=== PATIENT | male | born 1955 ===

== ENCOUNTER 2017-05-17 10:34 | Observation (INO) | payer OTHER ==
--- NOTE | 2017-05-17 11:17 | ED PDOC ---
HPI: Psych/Substance Abuse Time Seen by Provider: 05/17/17 10:37 Chief Complaint (Nursing): Psychiatric Evaluation History Per: Patient, EMS Additional Complaint(s): Pt. brought in by EMS as he is c/o feeling depressed x 2 months. States he does usually drink but has been drinking more heavily over the past 2 months. Pt. states that he feels depressed because he from his 2 months ago and has also become homeless. Offers no physical complaints. Denies SI/HI, hallucinations. As per EMS pt. was found to have 1 empty bottle of vodka and did admit to drinking the bottle today. Past Medical History Reviewed: Historical Data, Nursing Documentation, Vital Signs Vital Signs: Last Vital Signs Temp 97 F L 05/17/17 10:50 Pulse 89 05/17/17 10:50 Resp 17 05/17/17 10:50 BP Pulse Ox 98 05/17/17 10:50 - Medical History PMH: HTN (not currenlty on any medications ) Denies: Diabetes - Surgical History Surgical History: No Surg Hx - Family History Family History: States: No Known Family Hx - Allergies Allergies/Adverse Reactions: Allergies Allergy/AdvReac Type Severity Reaction Status Date / Time No Known Allergies Allergy Verified 05/17/17 10:49 Review of Systems ROS Statement: Except As Marked, All Systems Reviewed And Found Negative Psych: Positive for: Depression Physical Exam - Reviewed Nursing Documentation Reviewed: Yes Vital Signs Reviewed: Yes - Physical Exam Appears: Positive for: Well, Non-toxic, No Acute Distress Head Exam: Positive for: ATRAUMATIC, NORMAL INSPECTION, NORMOCEPHALIC Skin: Positive for: Normal Color, Warm. Negative for: Rash Eye Exam: Positive for: EOMI, Normal appearance, PERRL ENT: Positive for: Normal ENT Inspection Neck: Positive for: Normal, Painless ROM Cardiovascular/Chest: Positive for: Regular Rate, Rhythm Respiratory: Positive for: CNT, Normal Breath Sounds Gastrointestinal/Abdominal: Positive for: Normal Exam, Bowel Sounds, Soft. Negative for: Tenderness Back: Positive for: Normal Inspection Extremity: Positive for: Normal ROM Neurologic/Psych: Positive for: Alert, Oriented, Gait (steady unassisted). Negative for: Aphasia, Facial Droop - Laboratory Results Result Diagrams: 05/17/17 11:23 05/17/17 11:23 - ECG ECG: Positive for: Interpreted By Me ECG Rhythm: Positive for: Sinus Rhythm. Negative for: ST/T Changes Rate: 80 O2 Sat by Pulse Oximetry: 98 - Radiology X-Ray: Interpreted by Me (CXR) - Progress ED Course And Treament: FSBS: 193 Labs ordered. Crisis evaluation ordered. 1220 Sleeping comfortably 1405 No distress. Easily arousable. 1600 Sleeping and in no distress. Easily arousable. 1940 Pt. evaluated by crisis and arrangements made for admission at the request of Dr. Min Disposition - Clinical Impression Clinical Impression: Depression - Patient ED Disposition Is Patient to be Admitted: Yes - Disposition Disposition Time: 20:00 Condition: STABLE Forms: [employer] (Icelandic)
[2017-05-17 11:38] LABS: BASO % 0.7 % (0.0-2.0); EOS # 0.1 K/uL (0.0-0.7); EOS % 2.3 % (0.0-4.0); HEMATOCRIT 40.9 % (35.0-51.0); LYMPH # 1.1 K/uL (1.0-4.3); LYMPH % 17.3 % (20.0-40.0); MEAN CELL VOLUME 95.2 fl (80.0-94.0); MEAN CORPUSCULAR HEMOGLOBIN 32.3 pg (27.0-31.0); MEAN PLATELET VOLUME 8.4 fl (7.2-11.7); MONO # 0.4 K/uL (0.0-0.8); MONO % 6.4 % (0.0-10.0); NEUT # 4.6 K/uL (1.8-7.0); NEUT % 73.3 % (50.0-75.0); RED CELL DISTRIBUTION WIDTH 15.4 % (11.5-14.5); WHITE BLOOD COUNT 6.2 K/uL (4.8-10.8)
[2017-05-17 11:49] LABS: ALB/GLOB RATIO 1.3 (1.0-2.1); ALKALINE PHOSPHATASE 68 U/L (38-126); ALT/SGPT 147 U/L (21-72); AST/SGOT 182 U/L (17-59); BILIRUBIN,TOTAL 0.7 mg/dl (0.2-1.3); BLOOD UREA NITROGEN 12 mg/dl (9-20); CALCIUM 9.2 mg/dL (8.4-10.2); CARBON DIOXIDE 25 mmol/L (22-30); CHLORIDE 104 mmol/L (98-107); GFR AFRICAN-AMERICAN > 60; GLUCOSE,RANDOM 129 mg/dL (75-110); POTASSIUM 3.9 MMOL/L (3.6-5.0); SODIUM 144 mmol/l (132-148); TOTAL PROTEIN 8.2 G/DL (6.3-8.2)
[2017-05-17 12:04] LABS: ALCOHOL SERUM 334 mg/dl (0-10)
[2017-05-17 12:07] LABS: RBC URINE 4 /hpf (0-3); URINE BACTERIA RARE (<OCC); URINE BILIRUBIN NEGATIVE (NEGATIVE); URINE BLOOD SMALL (NEGATIVE); URINE COLOR YELLOW (YELLOW); URINE GLUCOSE (UA) NEG (Normal); URINE KETONE TRACE mg/dL (NEGATIVE); URINE LEUKOCYTE ESTERASE NEG Leu/uL (Negative); URINE PROTEIN 30 mg/dL (NEGATIVE); WBC URINE 1 /hpf (0-5)
[2017-05-18] MEDS ORDERED: Sodium Chloride 0.9% 1,000 ML IV STA (00:40)
[2017-05-18] MEDS ORDERED: Sodium Chloride 0.9% 250 ML IV STA (00:40)
[2017-05-18] MEDS ORDERED: Metoprolol 1 mg/ml Inj IVP STA (00:52)
[2017-05-18] MEDS ORDERED: Metoprolol 1 mg/ml Inj IVP ONE (01:05)
--- NOTE | 2017-05-18 07:52 | CP.PCM.HP ---
History of Present Illness - History of Present Illness History of Present Illness: PCP: None Chief Complaint: Depressed The patient was seen and examined in the ICU, no family present HPI: This is a 61 years old male who has hx of HTN, non compliant with medication. He has been from his for 2 months and has been homeless and drinking alcohol daily since. He was picked up on the street by the ambulance and bought to the ED where he admitted to being depressed. No Thoughts of Suicide nor homicide, no seizure, trauma, headache, chest pain nor SOB. In the ED ETOH was 334. 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 absent: Diplopia, Floaters, Sees Flashes Ears: absent: Decreased Hearing, Ear Discharge, Tinnitus Nose/Mouth/Throat: absent: Epistaxis, Nasal Congestion, Nasal Trauma, Sinus Pain , Sinus Pressure, Sore Throat - Cardiovascular Cardiovascular: absent: Chest Pain, Dyspnea, Edema, Palpitations - Respiratory Respiratory: absent: Cough, Dyspnea, Wheezing, Stridor - Gastrointestinal Gastrointestinal: absent: Abdominal Pain, Constipation, Diarrhea, Nausea, Vomiting - Genitourinary Genitourinary: absent: Dysuria, Flank Pain, Hematuria, Urinary Frequency - Musculoskeletal Musculoskeletal: absent: Back Pain, Joint Swelling, Muscle Cramps, Myalgias - Integumentary Integumentary: absent: Pruritus, Rash, Skin Ulcer, Sores, Striae, Swelling - Neurological Neurological: absent: Confusion, Numbness, Focal Weakness, Weakness - Psychiatric Psychiatric: Depression. absent: Anxiety, Panic Attacks - Endocrine Endocrine: absent: Palpitations, Polydipsia, Polyphagia, Polyuria - Hematologic/Lymphatic Hematologic: absent: Easy Bleeding, Easy Bruising Past Patient History - Past Medical History & Family History Past Medical History?: Yes - Past Social History Smoking Status: Never Smoked Chewing Tobacco Use: No Cigar Use: No Alcohol: > 2 Drinks/Day Drugs: Denies Home Situation {Lives}: Homeless - CARDIAC Hx Hypertension: Yes - PULMONARY Hx Respiratory Disorders: No Hx Tuberculosis: No - NEUROLOGICAL HX Cerebrovascular Accident: No Hx Seizures: No - HEENT Hx HEENT Problems: No - RENAL Hx Chronic Kidney Disease: No - ENDOCRINE/METABOLIC Hx Endocrine Disorders: No - HEMATOLOGICAL/ONCOLOGICAL Hx Blood Disorders: No Hx Cancer: No Hx Human Immunodeficiency Virus (HIV): No - INTEGUMENTARY Hx Dermatological Problems: No - MUSCULOSKELETAL/RHEUMATOLOGICAL Hx Falls: Yes - GASTROINTESTINAL Hx Gastrointestinal Disorders: No - GENITOURINARY/GYNECOLOGICAL Hx Genitourinary Disorders: No Hx Sexually Transmitted Disorders: No - PSYCHIATRIC Hx Psychophysiologic Disorder: No Hx Substance Use: No - SURGICAL HISTORY Hx Herniorrhaphy: Yes (Bilateral Inguinal herfnia) Other/Comment: Three inguinal herina repair - ANESTHESIA Hx Anesthesia: Yes Hx Anesthesia Reactions: No Meds Allergies/Adverse Reactions: Allergies Allergy/AdvReac Type Severity Reaction Status Date / Time No Known Allergies Allergy Verified 05/17/17 10:49 Physical Exam - Constitutional Appears: No Acute Distress - Head Exam Head Exam: ATRAUMATIC, NORMAL INSPECTION, NORMOCEPHALIC - Eye Exam Eye Exam: EOMI, Normal appearance Pupil Exam: NORMAL ACCOMODATION, PERRL - ENT Exam ENT Exam: Mucous Membranes Moist, Normal Exam, Normal External Ear Exam, Normal Oropharynx - Neck Exam Neck exam: Positive for: Full Rom, Normal Inspection. Negative for: Lymphadenopathy, Tenderness - Respiratory Exam Respiratory Exam: Clear to Auscultation Bilateral. absent: Rales, Rhonchi, Wheezes - Cardiovascular Exam Cardiovascular Exam: REGULAR RHYTHM, RRR, +S1, +S2 - GI/Abdominal Exam GI & Abdominal Exam: Normal Bowel Sounds, Soft. absent: Mass, Organomegaly, Tenderness - Rectal Exam Rectal Exam: Deferred - Extremities Exam Extremities exam: Positive for: full ROM, normal inspection. Negative for: calf tenderness, pedal edema - Back Exam Back exam: NORMAL INSPECTION. absent: CVA tenderness (L), CVA tenderness (R) - Neurological Exam Neurological exam: Alert, CN II-XII Intact, Oriented x3, Reflexes Normal - Psychiatric Exam Psychiatric exam: Normal Affect, Normal Mood - Skin Skin Exam: Dry, Intact, Normal Color, Warm Results - Vital Signs Recent Vital Signs: Last Vital Signs Temp 98.9 F 05/18/17 03:49 Pulse 70 05/18/17 03:49 Resp 14 05/18/17 03:49 BP 173/98 H 05/18/17 03:49 Pulse Ox 95 05/18/17 03:49 - Labs Result Diagrams: 05/17/17 11:23 05/17/17 11:23 Labs: Laboratory Results - last 24 hr 05/17/17 05/17/17 05/17/17 11:01 11:23 11:23 WBC 6.2 RBC 4.29 L Hgb 13.9 Hct 40.9 MCV 95.2 H MCH 32.3 H MCHC 34.0 RDW 15.4 H Plt Count 163 MPV 8.4 Neut % (Auto) 73.3 Lymph % (Auto) 17.3 L [place] % (Auto) 6.4 Eos % (Auto) 2.3 Baso % (Auto) 0.7 Neut # 4.6 Lymph # 1.1 [place] # 0.4 Eos # 0.1 Baso # 0.0 Sodium 144 Potassium 3.9 Chloride 104 Carbon Dioxide 25 Anion Gap 19 BUN 12 Creatinine 0.7 L Est GFR ( Amer) > 60 Est GFR (Non-Af Amer) > 60 POC Glucose (mg/dL) 193 H Random Glucose 129 H Calcium 9.2 Total Bilirubin 0.7 AST 182 H ALT 147 H Alkaline Phosphatase 68 Troponin I Total Protein 8.2 Albumin 4.7 Globulin 3.5 Albumin/Globulin Ratio 1.3 Urine Color Urine Clarity Urine pH Ur Specific [place] Urine Protein Urine Glucose (UA) Urine Ketones Urine Blood Urine Nitrate Urine Bilirubin Urine Urobilinogen Ur Leukocyte Esterase Urine RBC (Auto) Urine Microscopic WBC Ur Squamous Epith Cells Urine Bacteria Urine Opiates Screen Urine Methadone Screen Ur Barbiturates Screen Ur Phencyclidine Scrn Ur Amphetamines Screen U Benzodiazepines Scrn U Oth Cocaine Metabols U Cannabinoids Screen Alcohol, Quantitative 334 H* 05/17/17 05/17/17 05/17/17 11:55 11:55 17:09 WBC RBC Hgb Hct MCV MCH MCHC RDW Plt Count MPV Neut % (Auto) Lymph % (Auto) [place] % (Auto) Eos % (Auto) Baso % (Auto) Neut # Lymph # [place] # Eos # Baso # Sodium Potassium Chloride Carbon Dioxide Anion Gap BUN Creatinine Est GFR ( Amer) Est GFR (Non-Af Amer) POC Glucose (mg/dL) 167 H Random Glucose Calcium Total Bilirubin AST ALT Alkaline Phosphatase Troponin I Total Protein Albumin Globulin Albumin/Globulin Ratio Urine Color Yellow Urine Clarity Clear Urine pH 6.0 Ur Specific [place] 1.005 Urine Protein 30 Urine Glucose (UA) Neg Urine Ketones Trace Urine Blood Small Urine Nitrate Negative Urine Bilirubin Negative Urine Urobilinogen 4.0 Ur Leukocyte Esterase Neg Urine RBC (Auto) 4 H Urine Microscopic WBC 1 Ur Squamous Epith Cells < 1 Urine Bacteria Rare Urine Opiates Screen Negative Urine Methadone Screen Negative Ur Barbiturates Screen Negative Ur Phencyclidine Scrn Negative Ur Amphetamines Screen Negative U Benzodiazepines Scrn Negative U Oth Cocaine Metabols Negative U Cannabinoids Screen Negative Alcohol, Quantitative 05/18/17 01:00 WBC RBC Hgb Hct MCV MCH MCHC RDW Plt Count MPV Neut % (Auto) Lymph % (Auto) [place] % (Auto) Eos % (Auto) Baso % (Auto) Neut # Lymph # [place] # Eos # Baso # Sodium Potassium Chloride Carbon Dioxide Anion Gap BUN Creatinine Est GFR ( Amer) Est GFR (Non-Af Amer) POC Glucose (mg/dL) Random Glucose Calcium Total Bilirubin AST ALT Alkaline Phosphatase Troponin I < 0.0120 Total Protein Albumin Globulin Albumin/Globulin Ratio Urine Color Urine Clarity Urine pH Ur Specific [place] Urine Protein Urine Glucose (UA) Urine Ketones Urine Blood Urine Nitrate Urine Bilirubin Urine Urobilinogen Ur Leukocyte Esterase Urine RBC (Auto) Urine Microscopic WBC Ur Squamous Epith Cells Urine Bacteria Urine Opiates Screen Urine Methadone Screen Ur Barbiturates Screen Ur Phencyclidine Scrn Ur Amphetamines Screen U Benzodiazepines Scrn U Oth Cocaine Metabols U Cannabinoids Screen Alcohol, Quantitative - Impressions Impression: NSR 80/min - Imaging and Cardiology Chest x-ray Status: Image reviewed by me Additional comment: No infiltrate Assessment & Plan - Assessment and Plan (Free Text) Assessment: #. Depression #. alcohol intoxication #. HTN Plan: 61 years old male who has hx of HTN, non compliant with medication, homeless and drinking alcohol daily since. the past 2 months. He was picked up on the street by the ambulance and bought to the ED where he admitted to being depressed. No Thoughts of Suicide nor homicide, no seizure, trauma, headache, chest pain nor SOB. In the ED ETOH was 334. BP elevated to 205/102mmHg , #. Depression - Psychiatric Consult with Dr Lester - psychiatric management #. Alcohol intoxication - Alcohol withdrawal precaution - IV fluid - Thiamine -Folic Acid - Multivitamin - Ativan IVP PRN - Librium scheduled #. HTN - Clonidine - follow vital signs #. DVT prophylaxis with Lovenox #. Code Status: Full - Date & Time Date: 05/18/17 Time: 07:52
--- NOTE | 2017-05-18 07:55 | RAD ---
HISTORY: clearance COMPARISON: No prior. FINDINGS: LUNGS: No active pulmonary disease. PLEURA: No significant pleural effusion identified, no pneumothorax apparent. CARDIOVASCULAR: Normal. OSSEOUS STRUCTURES: No significant abnormalities. VISUALIZED UPPER ABDOMEN: Normal. OTHER FINDINGS: None. IMPRESSION: No acute cardiopulmonary disease appreciated.
[2017-05-18] MEDS ORDERED: Multivitamin (MVI) 10 ML, Thiamine 100 MG in Dextrose 5%/0.45% NS 1,000 ML IV ONE (07:58)
--- NOTE | 2017-05-18 08:52 | CP.PCM.CON ---
History of Present Illness - History of Present Illness History of Present Illness: Psychiatry consult PCP: None Chief Complaint: "I drink alcohol." HPI: This is a 61 years old male who has hx of HTN, non compliant with medication. He has been from his for 2 months and has been homeless and drinking alcohol daily since. He was picked up on the street by the ambulance and bought to the ED where he admitted to being depressed. Patient reports that he drinks 3 bottles (pint?) of bacardi rum/ day. He reports that he feels depressed, but denies acute ideation to harm self or others. He also reports feeling anxious at times. He states that he feels tremulous due to alcohol withdrawal. He reports that he has had periods of sobriety in the past, but has been drinking heavily for several months. No AH/ VH/paranoia/delusions. Patient is agreeable to treatment w/ antidepressant medication at this time. When asked if he wants acute inpatient psychiatric admission, he stated that he wants to get treatment for alcohol withdrawal and then be discharged. PPH: Denies past psychiatric history of psychiatric admissions or treatment w/ psychotropic medications. PMH: HTN not on medication PSH: Bilateral inguinal hernia Repair SH: From [facility], from , no children. 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 major depressive disorder; patient is not agreeable to acute inpatient psychiatric admission at this time, but is agreeable to treatment with antidepressant medication. He does not meet criteria for involuntary commitment. -Can start Zoloft 50 mg PO Daily -Agree w/ Librium for ETOH w/drawal as per [facility] protocol -Agree w/ tx w/ thiamine and folate -Patient counseled on the importance of alcohol cessation Past Patient History - Past Medical History & Family History Past Medical History?: Yes - Past Social History Smoking Status: Never Smoked Chewing Tobacco Use: No Cigar Use: No Alcohol: > 2 Drinks/Day Drugs: Denies Home Situation {Lives}: Homeless - CARDIAC Hx Hypertension: Yes - PULMONARY Hx Respiratory Disorders: No Hx Tuberculosis: No - NEUROLOGICAL HX Cerebrovascular Accident: No Hx Seizures: No - HEENT Hx HEENT Problems: No - RENAL Hx Chronic Kidney Disease: No - ENDOCRINE/METABOLIC Hx Endocrine Disorders: No - HEMATOLOGICAL/ONCOLOGICAL Hx Blood Disorders: No Hx Cancer: No Hx Human Immunodeficiency Virus (HIV): No - INTEGUMENTARY Hx Dermatological Problems: No - MUSCULOSKELETAL/RHEUMATOLOGICAL Hx Falls: Yes - GASTROINTESTINAL Hx Gastrointestinal Disorders: No - GENITOURINARY/GYNECOLOGICAL Hx Genitourinary Disorders: No Hx Sexually Transmitted Disorders: No - PSYCHIATRIC Hx Psychophysiologic Disorder: No Hx Substance Use: No - SURGICAL HISTORY Hx Herniorrhaphy: Yes (Bilateral Inguinal herfnia) Other/Comment: Three inguinal herina repair - ANESTHESIA Hx Anesthesia: Yes Hx Anesthesia Reactions: No Meds Allergies/Adverse Reactions: Allergies Allergy/AdvReac Type Severity Reaction Status Date / Time No Known Allergies Allergy Verified 05/17/17 10:49 - Medications Medications: Current Medications Chlordiazepoxide (Librium) 25 mg PO Q6 [facility] Stop: 05/20/17 10:01 Chlordiazepoxide (Librium) 25 mg PO Q8 [facility] Stop: 05/23/17 09:01 Clonidine HCl (Catapres) 0.2 mg PO BID [facility] Enoxaparin Sodium (Lovenox) 40 mg SC DAILY [facility] PRN Reason: Protocol Folic Acid (Folic Acid) 1 mg PO DAILY [facility] Multivitamins/Vitamin C 10 ml/Thiamine HCl 100 mg/ Dextrose /Sodium Chloride 1, 011 mls @ 100 mls/hr IV .[id number] ONE Stop: 05/18/17 18:04 Lorazepam (Ativan) 1 mg IVP Q4 PRN PRN Reason: Agitation Multivitamins/Minerals (Therapeutic-M Tab) 1 tab PO DAILY [facility] Thiamine HCl (Vitamin B1 Tab) 100 mg PO DAILY [facility] Results - Vital Signs Recent Vital Signs: Last Vital Signs Temp 98.5 F 05/18/17 08:00 Pulse 70 05/18/17 08:00 Resp 12 05/18/17 08:00 BP 160/81 H 05/18/17 08:00 Pulse Ox 98 05/18/17 08:00 - Labs Result Diagrams: 05/17/17 11:23 05/17/17 11:23 Labs: Laboratory Results - last 24 hr 05/17/17 05/17/17 05/17/17 11:01 11:23 11:23 WBC 6.2 RBC 4.29 L Hgb 13.9 Hct 40.9 MCV 95.2 H MCH 32.3 H MCHC 34.0 RDW 15.4 H Plt Count 163 MPV 8.4 Neut % (Auto) 73.3 Lymph % (Auto) 17.3 L [place] % (Auto) 6.4 Eos % (Auto) 2.3 Baso % (Auto) 0.7 Neut # 4.6 Lymph # 1.1 [place] # 0.4 Eos # 0.1 Baso # 0.0 Sodium 144 Potassium 3.9 Chloride 104 Carbon Dioxide 25 Anion Gap 19 BUN 12 Creatinine 0.7 L Est GFR ( Amer) > 60 Est GFR (Non-Af Amer) > 60 POC Glucose (mg/dL) 193 H Random Glucose 129 H Calcium 9.2 Total Bilirubin 0.7 AST 182 H ALT 147 H Alkaline Phosphatase 68 Troponin I Total Protein 8.2 Albumin 4.7 Globulin 3.5 Albumin/Globulin Ratio 1.3 Urine Color Urine Clarity Urine pH Ur Specific [place] Urine Protein Urine Glucose (UA) Urine Ketones Urine Blood Urine Nitrate Urine Bilirubin Urine Urobilinogen Ur Leukocyte Esterase Urine RBC (Auto) Urine Microscopic WBC Ur Squamous Epith Cells Urine Bacteria Urine Opiates Screen Urine Methadone Screen Ur Barbiturates Screen Ur Phencyclidine Scrn Ur Amphetamines Screen U Benzodiazepines Scrn U Oth Cocaine Metabols U Cannabinoids Screen Alcohol, Quantitative 334 H* 05/17/17 05/17/17 05/17/17 11:55 11:55 17:09 WBC RBC Hgb Hct MCV MCH MCHC RDW Plt Count MPV Neut % (Auto) Lymph % (Auto) [place] % (Auto) Eos % (Auto) Baso % (Auto) Neut # Lymph # [place] # Eos # Baso # Sodium Potassium Chloride Carbon Dioxide Anion Gap BUN Creatinine Est GFR ( Amer) Est GFR (Non-Af Amer) POC Glucose (mg/dL) 167 H Random Glucose Calcium Total Bilirubin AST ALT Alkaline Phosphatase Troponin I Total Protein Albumin Globulin Albumin/Globulin Ratio Urine Color Yellow Urine Clarity Clear Urine pH 6.0 Ur Specific [place] 1.005 Urine Protein 30 Urine Glucose (UA) Neg Urine Ketones Trace Urine Blood Small Urine Nitrate Negative Urine Bilirubin Negative Urine Urobilinogen 4.0 Ur Leukocyte Esterase Neg Urine RBC (Auto) 4 H Urine Microscopic WBC 1 Ur Squamous Epith Cells < 1 Urine Bacteria Rare Urine Opiates Screen Negative Urine Methadone Screen Negative Ur Barbiturates Screen Negative Ur Phencyclidine Scrn Negative Ur Amphetamines Screen Negative U Benzodiazepines Scrn Negative U Oth Cocaine Metabols Negative U Cannabinoids Screen Negative Alcohol, Quantitative 05/18/17 01:00 WBC RBC Hgb Hct MCV MCH MCHC RDW Plt Count MPV Neut % (Auto) Lymph % (Auto) [place] % (Auto) Eos % (Auto) Baso % (Auto) Neut # Lymph # [place] # Eos # Baso # Sodium Potassium Chloride Carbon Dioxide Anion Gap BUN Creatinine Est GFR ( Amer) Est GFR (Non-Af Amer) POC Glucose (mg/dL) Random Glucose Calcium Total Bilirubin AST ALT Alkaline Phosphatase Troponin I < 0.0120 Total Protein Albumin Globulin Albumin/Globulin Ratio Urine Color Urine Clarity Urine pH Ur Specific [place] Urine Protein Urine Glucose (UA) Urine Ketones Urine Blood Urine Nitrate Urine Bilirubin Urine Urobilinogen Ur Leukocyte Esterase Urine RBC (Auto) Urine Microscopic WBC Ur Squamous Epith Cells Urine Bacteria Urine Opiates Screen Urine Methadone Screen Ur Barbiturates Screen Ur Phencyclidine Scrn Ur Amphetamines Screen U Benzodiazepines Scrn U Oth Cocaine Metabols U Cannabinoids Screen Alcohol, Quantitative
[2017-05-18] MEDS ORDERED: Enoxaparin 40 mg Syringe SC SCH (09:00)
--- NOTE | 2017-05-18 12:07 | CP.PCM.DIS ---
Provider - Provider Date of Admission: 05/17/17 20:15 Attending physician: Jeff Contreras Primary care physician: None Consults: psychiatry consult Time Spent in preparation of Discharge (in minutes): 15 Hospital Course - Lab Results Lab Results: Most Recent Lab Values WBC 6.2 K/uL (4.8-10.8) 05/17/17 11:23 RBC 4.29 Mil/uL (4.40-5.90) L 05/17/17 11:23 Hgb 13.9 g/dL (12.0-18.0) 05/17/17 11:23 Hct 40.9 % (35.0-51.0) 05/17/17 11:23 MCV 95.2 fl (80.0-94.0) H 05/17/17 11:23 MCH 32.3 pg (27.0-31.0) H 05/17/17 11:23 MCHC 34.0 g/dL (33.0-37.0) 05/17/17 11:23 RDW 15.4 % (11.5-14.5) H 05/17/17 11:23 Plt Count 163 K/uL (130-400) 05/17/17 11:23 MPV 8.4 fl (7.2-11.7) 05/17/17 11:23 Neut % (Auto) 73.3 % (50.0-75.0) 05/17/17 11:23 Lymph % (Auto) 17.3 % (20.0-40.0) L 05/17/17 11:23 [place] % (Auto) 6.4 % (0.0-10.0) 05/17/17 11:23 Eos % (Auto) 2.3 % (0.0-4.0) 05/17/17 11:23 Baso % (Auto) 0.7 % (0.0-2.0) 05/17/17 11:23 Neut # 4.6 K/uL (1.8-7.0) 05/17/17 11:23 Lymph # 1.1 K/uL (1.0-4.3) 05/17/17 11:23 [place] # 0.4 K/uL (0.0-0.8) 05/17/17 11:23 Eos # 0.1 K/uL (0.0-0.7) 05/17/17 11:23 Baso # 0.0 K/uL (0.0-0.2) 05/17/17 11:23 Sodium 144 mmol/l (132-148) 05/17/17 11:23 Potassium 3.9 MMOL/L (3.6-5.0) 05/17/17 11:23 Chloride 104 mmol/L (98-107) 05/17/17 11:23 Carbon Dioxide 25 mmol/L (22-30) 05/17/17 11:23 Anion Gap 19 (10-20) 05/17/17 11:23 BUN 12 mg/dl (9-20) 05/17/17 11:23 Creatinine 0.7 mg/dl (0.8-1.5) L 05/17/17 11:23 Est GFR ( Amer) > 60 05/17/17 11:23 Est GFR (Non-Af Amer) > 60 05/17/17 11:23 POC Glucose (mg/dL) 167 mg/dL (65-110) H 05/17/17 17:09 Random Glucose 129 mg/dL (75-110) H 05/17/17 11:23 Calcium 9.2 mg/dL (8.4-10.2) 05/17/17 11:23 Total Bilirubin 0.7 mg/dl (0.2-1.3) 05/17/17 11:23 AST 182 U/L (17-59) H 05/17/17 11:23 ALT 147 U/L (21-72) H 05/17/17 11:23 Alkaline Phosphatase 68 U/L (38-126) 05/17/17 11:23 Troponin I < 0.0120 ng/mL (0.00-0.120) 05/18/17 01:00 Total Protein 8.2 G/DL (6.3-8.2) 05/17/17 11:23 Albumin 4.7 g/dL (3.5-5.0) 05/17/17 11:23 Globulin 3.5 gm/dL (2.2-3.9) 05/17/17 11:23 Albumin/Globulin Ratio 1.3 (1.0-2.1) 05/17/17 11:23 Urine Color Yellow (YELLOW) 05/17/17 11:55 Urine Clarity Clear (Clear) 05/17/17 11:55 Urine pH 6.0 (5.0-8.0) 05/17/17 11:55 Ur Specific [place] 1.005 (1.003-1.030) 05/17/17 11:55 Urine Protein 30 mg/dL (NEGATIVE) 05/17/17 11:55 Urine Glucose (UA) Neg mg/dL (Normal) 05/17/17 11:55 Urine Ketones Trace mg/dL (NEGATIVE) 05/17/17 11:55 Urine Blood Small (NEGATIVE) 05/17/17 11:55 Urine Nitrate Negative (NEGATIVE) 05/17/17 11:55 Urine Bilirubin Negative (NEGATIVE) 05/17/17 11:55 Urine Urobilinogen 4.0 mg/dL (0.2-1.0) 05/17/17 11:55 Ur Leukocyte Esterase Neg Larry/uL (Negative) 05/17/17 11:55 Urine RBC (Auto) 4 /hpf (0-3) H 05/17/17 11:55 Urine Microscopic WBC 1 /hpf (0-5) 05/17/17 11:55 Ur Squamous Epith Cells < 1 /hpf (0-5) 05/17/17 11:55 Urine Bacteria Rare (<OCC) 05/17/17 11:55 Urine Opiates Screen Negative (NEGATIVE) 05/17/17 11:55 Urine Methadone Screen Negative (NEGATIVE) 05/17/17 11:55 Ur Barbiturates Screen Negative (NEGATIVE) 05/17/17 11:55 Ur Phencyclidine Scrn Negative (NEGATIVE) 05/17/17 11:55 Ur Amphetamines Screen Negative (NEGATIVE) 05/17/17 11:55 U Benzodiazepines Scrn Negative (NEGATIVE) 05/17/17 11:55 U Oth Cocaine Metabols Negative (NEGATIVE) 05/17/17 11:55 U Cannabinoids Screen Negative (NEGATIVE) 05/17/17 11:55 Alcohol, Quantitative 334 mg/dl (0-10) H* 05/17/17 11:23 - Hospital Course Hospital Course: 61 years old male who has hx of HTN, non compliant with medication, homeless and drinking alcohol daily since for the past 2 months in large quantities,was picked up on the street by the ambulance and bought to the ED where he admitted to being depressed. No Thoughts of Suicide nor homicide, no seizure, trauma, headache, chest pain nor SOB. In the ED ETOH was 334. BP elevated to 205/102mmHg,. patient initially was admitted for intoxication and uncontrolled BP to telemetry . Started on librium , Ativan PRN, thiamine , folic acid, MVI. IVF and Clonidine Po.His Bp is better controlede 140/74 not tachycardic with no tremors, hemodynamically stable. Psychiatry consulted and patient admitted to being depressed , started on Zoloft and now agreeable to be discharged to psych unit. Discussed with Dr. Lester and accepts patient to psych unit for management of depression and alcoholism. Patient is medically stable for discharge to psych unit . 1. Depression Psychiatric Consult with Dr Lester psychiatry consult appreciated Started Zoloft agreeable to go to psych for management of depression and alcoholism 2. Alcohol intoxication ETOH level > 300 Alcohol withdrawal precaution continue Thiamine, folic acid MVI Ativan PRN Librium tappering dose Clonidine PO 3.Hypertensive emergency not compliant with treatment started Clonidine and BP better controlled 4. Transaminitis Most likely secondary to ETOH abuse Discharge Exam - Head Exam Head Exam: ATRAUMATIC, NORMAL INSPECTION, NORMOCEPHALIC - Eye Exam Eye Exam: EOMI, Normal appearance, PERRL Pupil Exam: NORMAL ACCOMODATION - ENT Exam ENT Exam: Mucous Membranes Moist, Normal Exam - Neck Exam Neck exam: Full Rom, Normal Inspection - Respiratory Exam Respiratory Exam: Clear to PA & Lateral, NORMAL BREATHING PATTERN. absent: Rales, Rhonchi, Wheezes, Respiratory Distress - Cardiovascular Exam Cardiovascular Exam: REGULAR RHYTHM, RRR, +S1, +S2. absent: JVD - GI/Abdominal Exam GI & Abdominal Exam: Normal Bowel Sounds, Soft. absent: Distended, Guarding, Rebound, Tenderness - Rectal Exam Rectal Exam: Deferred - Extremities Exam Extremities exam: normal capillary refill, normal inspection, pedal pulses present - Back Exam Back exam: NORMAL INSPECTION - Neurological Exam Neurological exam: Alert, CN II-XII Intact, Oriented x3, Reflexes Normal - Psychiatric Exam Psychiatric exam: Normal Affect, Normal Mood - Skin Skin Exam: Dry, Intact, Normal Color, Warm Discharge Plan - Follow Up Plan Condition: STABLE Disposition: DISCHARGE TO PSYCH HOSPITAL Patient education suggested?: Yes Instructions: Alcohol Intoxication (DC), Alcohol Use Disorder (DC), Chronic Hypertension (DC)
--- NOTE | 2017-05-18 15:57 | CARD ---
APPROVED REPORT EKG Measurement Heart [id number] <Conclusion> Normal sinus rhythm Normal ECG
[2017-05-18 16:05] VITALS: BP 117/76; PULSE 65
[2017-05-18 16:12] VITALS: RESP 14; TEMP 99.4; O2SAT 100
[2017-05-19] MEDS ORDERED: Multivitamin With Minerals Tab PO SCH (09:00)
== END 2017-05-18 16:30 ==
LOC: H.ER 10:34 → INTOOBSV 20:15 → H.ERHOLD 20:15 → H.ICU/CCU 05-18 03:30
PROVIDERS: ADMIT Internal Medicine; ATTEND Internal Medicine
DX: F32.9 Major depressive disorder, single episode, unspecified (principal); I10 Essential (primary) hypertension; Z59.0 Homelessness; Z91.14 Patient's other noncompliance with medication regimen; F10.129 Alcohol abuse with intoxication, unspecified; Y90.8 Blood alcohol level of 240 mg/100 ml or more; I16.1 Hypertensive emergency; R74.0 Nonspecific elevation of levels of transaminase and lactic acid dehydrogenase [LDH]; Z91.19 Patient's noncompliance with other medical treatment and regimen
CPT/HCPCS: 71010; 80053; 80320; 80324; 80345; 80346; 80349; 80353; 80358; 80361; 81003; 82948; 83992; 84484; 85025; 87081; 93005; 96374; 99283; G0378; J1650; J3411; J7040; J7042

== ENCOUNTER 2017-05-18 12:27 | Inpatient (IN) | payer OTHER ==
[2017-05-18 16:48] VITALS: BMI 25.8
[2017-05-18] MEDS ORDERED: Magnesium Hydroxide Susp 30 ml UD PO PRN (17:28)
[2017-05-18] MEDS ORDERED: Alum-Mag Hydrox-Simethicone Susp (30 mL) PO PRN (17:28)
[2017-05-18] MEDS ORDERED: Bismuth Subsalicylate 262 mg/15 ml Sus (240 ml) PO PRN (17:28)
--- NOTE | 2017-05-18 18:02 | PCM.BM ---
Treatment Plan Problems - Problems identified on initial assessmt Problem 1 Date Initiated: 05/18/17 Time Initiated: 18:00 Assessment reference: NA Status: Active Problem 2 Date Initiated: 05/18/17 Time Initiated: 18:02 Assessment reference: NA Status: Active Problem 3 Date Initiated: 05/18/17 Time Initiated: 18:03 Assessment reference: NA Status: Active Treatment assets and liabiliti Patient Assests: cooperative Patient Liabilities: financial problems, substance abuse - Milieu Protocol Maintain good personal hygiene: daily Encourage regular showers, daily Remind patient to perform daily oral care, daily Assist patient to perform ADL's Maintain personal safety: every shift Educate patient to report safety concerns to staff, every shift Monitor environment for contraband/sharps Medication safety: Monitor for expected outcome, potential side effects: every shift, Assess barriers to learning: every shift, Assess readiness for medication education: every shift Family Contact Family involvement: No known Family/SO Discharge/Continuing Care - Discharge Discharge Criteria: Ability to care for self
[2017-05-19] MEDS: Multivitamin With Minerals Tab PO SCH (08:08)
--- NOTE | 2017-05-19 09:09 | PCM.PSYCH ---
Initial Psychiatric Evaluation - Initial Psychiatric Evaluation Type of Admission: Voluntary Legal Status: Capacity Chief Complaint (in patient's own words): "I'm depressed." Patient's Reaction to Hospitalization: HPI: This is a 61 years old male who has hx of HTN, non compliant with medication. He has been from his for 2 months and has been homeless and drinking alcohol daily since. He was picked up on the street by the ambulance and bought to the ED where he admitted to being depressed. Patient reports that he drinks 3 bottles (pint?) of bacardi rum/ day. He reports that he feels depressed, but denies acute ideation to harm self or others. He also reports feeling anxious at times. He reports that he has had periods of sobriety in the past, but has been drinking heavily for several months. No AH/VH/paranoia/delusions. Patient is agreeable to treatment w/ antidepressant medication at this time. PPH: Denies past psychiatric history of psychiatric admissions or treatment w/ psychotropic medications. PMH: HTN not on medication PSH: Bilateral inguinal hernia Repair SH: From [facility], from , no children. 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 FH: States: No Known Family Hx Allergies: NKDA Medication: NONE Current Medications: Active Medications Generic Name Dose Route Start Last Admin Trade Name Freq PRN Reason Stop Dose Admin Acetaminophen 650 mg 05/18/17 17:28 Tylenol 325mg Tab PO Q4 PRN Pain, moderate (4-7) Al Hydrox/Mg Hydrox/Simethicone 30 ml 05/18/17 17:28 Maalox Plus 30 Ml PO Q4 PRN Dyspepsia Bismuth Subsalicylate 524 mg 05/18/17 17:28 Pepto-Bismol PO Q4 PRN Diarrhea Chlordiazepoxide 25 mg 05/18/17 17:45 05/19/17 01:36 Librium PO 25 mg Q8 COLE Administration Folic Acid 1 mg 05/19/17 09:00 05/19/17 08:07 Folic Acid PO 1 mg DAILY COLE Administration Lorazepam 0.5 mg 05/18/17 17:28 Ativan PO 06/01/17 17:29 HS PRN Insomnia Lorazepam 0.5 mg 05/18/17 17:37 Ativan PO Q6 PRN Anxiety Magnesium Hydroxide 30 ml 05/18/17 17:28 Milk Of Magnesia PO HS PRN Constipation Multivitamins/Minerals 1 tab 05/19/17 09:00 05/19/17 08:08 Therapeutic-M Tab PO 1 tab DAILY COLE Administration Sertraline HCl 50 mg 05/19/17 09:00 05/19/17 08:08 Zoloft PO 50 mg DAILY COLE Administration Thiamine HCl 100 mg 05/19/17 09:00 05/19/17 08:08 Vitamin B1 Tab PO 100 mg DAILY COLE Administration Past Psychiatric History - Past Psychiatric History Previous Treatment History: None Pertinent Medical Hx (Current Medical&Sleep Prob, Allergies): Allergies Allergy/AdvReac Type Severity Reaction Status Date / Time No Known Allergies Allergy Verified 05/17/17 10:49 Folic Acid 1 mg PO DAILY tab 05/18/17 LORazepam [Ativan] 1 mg IVP Q4 PRN vial 05/18/17 Multimineral/Multivitamin [Therapeutic-M Tab] 1 tab PO DAILY tab 05/18/17 Sertraline [Zoloft] 50 mg PO DAILY tab 05/18/17 Thiamine [Vitamin B1 Tab] 100 mg PO DAILY tab 05/18/17 chlordiazePOXIDE [Librium] 25 mg PO Q6 cap 05/18/17 chlordiazePOXIDE [Librium] 25 mg PO Q8 cap 05/18/17 cloNIDine [Catapres] 0.2 mg PO BID tab 05/18/17 Review of Systems - Psychiatric Psychiatric: As Per HPI, Abnormal Sleep Pattern, Anxiety, Change in Appetite, Depression, Difficulty Concentrating, Hopelessness, Irritability, Mood Swings Mental Status Examination - Personal Presentation Personal Presentation: Looks stated age - Affect Affect: Constricted, Depressed - Motor Activity Motor Activity: Calm - Reliability in Providing Information Reliability in Providing Information: Fair - Speech Speech: Organized - Mood Mood: Depressed, Anxious - Formal Thought Process Formal Thought Process: No Impairment - Hallucinations/Delusions Additional comments: NO AH/VH/paranoia/delusions - Obsessions/Compulsions Obsessions: No Compulsions: No - Cognitive Functions Orientation: Person, Place, Situation, Time Sensorium: Alert Attention/Concentration: Attentive Judgement: Intact, as evidence by: Insight regarding need for hospitalization Memory: Recent intact, as evidence by: Ability to recall events of the day, Remote intact, as evidenced by: Abilit to recall sig. life events, Remote intact , as evidenced by: Ability to recall historical events - Risk Risk: Withdrawal, Diminished functioning - Strength & Assets Inventory Strength & Assets Inventory: Cooperative - Limitations Limitations: Other (Homeless, chronic ETOH abuse) DSM 5 DX - DSM 5 DSM 5 Diagnosis: Major Depressive Disorder; Alcohol Use Disorder - Recommended/Plan of Treatment Treatment Recommendations and Plan of Treatment: Major Depressive Disorder; Alcohol Use Disorder -Admit to psychiatry unit -Individual and group therapy provided -Zoloft 50 mg PO Daily -Librium for ETOH w/drawal; PRN ativan if needed -Disposition planning -Psychoeducation re: chronic substance abuse -Medicine consult Projected ELOS: 5-7 days Discharge Plan and Discharge Criteria: Discharge when psychiatrically stable - Smoking Cessation Smoking Cessation Initiated: No Reason for not providing: Not indicated
[2017-05-19 09:47] LABS: HEMOGLOBIN 13.3 g/dL (12.0-18.0); MEAN CELL VOLUME 97.1 fl (80.0-94.0); MEAN CORPUSCULAR HGB CONC 32.9 g/dL (33.0-37.0); RBC 4.15 Mil/uL (4.40-5.90); RED CELL DISTRIBUTION WIDTH 14.3 % (11.5-14.5); WHITE BLOOD COUNT 5.2 K/uL (4.8-10.8)
[2017-05-19 10:41] LABS: HDL CHOLESTEROL 159 MG/DL (30-70)
[2017-05-19 10:44] LABS: LDL CHOLESTEROL 125 mg/dL (0-129)
--- NOTE | 2017-05-19 11:02 | CP.PCM.CON ---
History of Present Illness - History of Present Illness History of Present Illness: CC: per hospital protocol HPI: 61 years old male who has hx of HTN, non compliant with medication, homeless and drinking alcohol daily since for the past 2 months in large quantities,was picked up on the street by the ambulance and bought to the ED where he admitted to being depressed. No Thoughts of Suicide nor homicide, no seizure, trauma, headache, chest pain nor SOB. In the ED ETOH was 334. BP elevated to 205/102mmHg,. patient initially was admitted for intoxication and uncontrolled BP to telemetry . Started on librium , Ativan PRN, thiamine , folic acid, MVI. IVF and Clonidine Po.His Bp is better controlede 140/74 not tachycardic with no tremors, hemodynamically stable. Psychiatry consulted and patient admitted to being depressed , started on Zoloft and now agreeable to be discharged to psych unit. Discussed with Dr. Lester and accepts patient to psych unit for management of depression and alcoholism. Patient is medically stable for discharge to psych unit . 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 FH: States: No Known Family Hx Allergies: NKDA Medication: NONE Past Patient History - Past Medical History & Family History Past Medical History?: Yes - Past Social History Smoking Status: Never Smoked Chewing Tobacco Use: No - CARDIAC Hx Hypertension: Yes - PULMONARY Hx Respiratory Disorders: No Hx Tuberculosis: No - NEUROLOGICAL HX Cerebrovascular Accident: No Hx Seizures: No - HEENT Hx HEENT Problems: No - RENAL Hx Chronic Kidney Disease: No - ENDOCRINE/METABOLIC Hx Endocrine Disorders: No - HEMATOLOGICAL/ONCOLOGICAL Hx Blood Disorders: No Hx Cancer: No Hx Human Immunodeficiency Virus (HIV): No - INTEGUMENTARY Hx Dermatological Problems: No - MUSCULOSKELETAL/RHEUMATOLOGICAL Hx Falls: Yes - GASTROINTESTINAL Hx Gastrointestinal Disorders: No - GENITOURINARY/GYNECOLOGICAL Hx Genitourinary Disorders: No Hx Sexually Transmitted Disorders: No - PSYCHIATRIC Hx Substance Use: No - SURGICAL HISTORY Hx Herniorrhaphy: Yes (Bilateral Inguinal herfnia) Other/Comment: Three inguinal herina repair - ANESTHESIA Hx Anesthesia: Yes Hx Anesthesia Reactions: No Meds Allergies/Adverse Reactions: Allergies Allergy/AdvReac Type Severity Reaction Status Date / Time No Known Allergies Allergy Verified 05/17/17 10:49 - Medications Medications: Current Medications Acetaminophen (Tylenol 325mg Tab) 650 mg PO Q4 PRN PRN Reason: Pain, moderate (4-7) Al Hydrox/Mg Hydrox/Simethicone (Maalox Plus 30 Ml) 30 ml PO Q4 PRN PRN Reason: Dyspepsia Bismuth Subsalicylate (Pepto-Bismol) 524 mg PO Q4 PRN PRN Reason: Diarrhea Chlordiazepoxide (Librium) 25 mg PO Q8 [facility] Last Admin: 05/19/17 10:30 Dose: 25 mg Folic Acid (Folic Acid) 1 mg PO DAILY [facility] Last Admin: 05/19/17 08:07 Dose: 1 mg Lorazepam (Ativan) 0.5 mg PO HS PRN PRN Reason: Insomnia Stop: 06/01/17 17:29 Lorazepam (Ativan) 0.5 mg PO Q6 PRN PRN Reason: Anxiety Magnesium Hydroxide (Milk Of Magnesia) 30 ml PO HS PRN PRN Reason: Constipation Multivitamins/Minerals (Therapeutic-M Tab) 1 tab PO DAILY [facility] Last Admin: 05/19/17 08:08 Dose: 1 tab Sertraline HCl (Zoloft) 50 mg PO DAILY [facility] Last Admin: 05/19/17 08:08 Dose: 50 mg Thiamine HCl (Vitamin B1 Tab) 100 mg PO DAILY [facility] Last Admin: 05/19/17 08:08 Dose: 100 mg Physical Exam - Constitutional Appears: Non-toxic, No Acute Distress - Head Exam Head Exam: ATRAUMATIC, NORMOCEPHALIC - Eye Exam Eye Exam: EOMI, PERRL - ENT Exam ENT Exam: Mucous Membranes Moist, Normal Oropharynx - Respiratory Exam Respiratory Exam: Clear to Auscultation Bilateral, NORMAL BREATHING PATTERN - Cardiovascular Exam Cardiovascular Exam: RRR, +S1, +S2 - GI/Abdominal Exam GI & Abdominal Exam: Soft. absent: Organomegaly - Extremities Exam Extremities exam: Positive for: normal capillary refill, pedal pulses present - Back Exam Back exam: absent: CVA tenderness (L), CVA tenderness (R) - Neurological Exam Neurological exam: Alert, Reflexes Normal - Psychiatric Exam Psychiatric exam: Normal Affect, Normal Mood - Skin Skin Exam: Dry, Warm Results - Vital Signs Recent Vital Signs: Last Vital Signs Temp 97.2 F L 05/19/17 05:39 Pulse 62 05/19/17 05:39 Resp 19 05/19/17 05:39 BP 138/90 05/19/17 05:39 Pulse Ox - Labs Result Diagrams: 05/19/17 08:30 Labs: Laboratory Results - last 24 hr 05/19/17 05/19/17 08:30 08:30 WBC 5.2 RBC 4.15 L Hgb 13.3 Hct 40.3 MCV 97.1 H MCH 32.0 H MCHC 32.9 L RDW 14.3 Plt Count 124 L D Triglycerides 109 Cholesterol 310 H LDL Cholesterol Direct 125 HDL Cholesterol 159 H Assessment & Plan - Assessment and Plan (Free Text) Plan: 61 years old male who has hx of HTN, non compliant with medication, homeless and drinking alcohol daily since for the past 2 months in large quantities,was picked up on the street by the ambulance and bought to the ED where he admitted to being depressed. No Thoughts of Suicide nor homicide, no seizure, trauma, headache, chest pain nor SOB. In the ED ETOH was 334. BP elevated to 205/102mmHg,. patient initially was admitted for intoxication and uncontrolled BP to telemetry . Started on librium , Ativan PRN, thiamine , folic acid, MVI. IVF and Clonidine Po.His Bp is better controlede 140/74 not tachycardic with no tremors, hemodynamically stable. Psychiatry consulted and patient admitted to being depressed , started on Zoloft and now agreeable to be discharged to psych unit. Discussed with Dr. Lester and accepts patient to psych unit for management of depression and alcoholism. Patient is medically stable for discharge to psych unit . 1. Depression management per psych 2. Alcohol intoxication ETOH level > 300 Alcohol withdrawal precaution continue Thiamine, folic acid MVI Ativan PRN Librium tappering dose Clonidine PO 3.Hypertensive emergency not compliant with treatment started Clonidine and BP better controlled 4. Transaminitis Most likely secondary to ETOH abuse
[2017-05-20] MEDS: Multivitamin With Minerals Tab PO SCH (07:59)
--- NOTE | 2017-05-20 09:04 | PCM.PYCHPN ---
Psychiatric Progress Note - Psychiatric Progress Note Patient seen today, length of contact: Patient evaluated, case discussed w/ team , chart reviewed Patient Chief Complaint: "I'm depressed." Problems Identified/Issues Discussed: Patient continues to report that he feels depressed. No adverse effects to Zoloft reported. He reports that he feels dizzy at times. The librium will continue to be tapered. No current signs/symptoms of ETOH withdrawal. NO AH/VH /paranoia/delusions. Medication Change: No Medical Record Reviewed: Yes Consults ordered or reviewed: Medicine consult appreciated Mental Status Examination - Cognitive Function Orientation: Person, Place, Situation, Time Memory: Intact Attention: WNL Concentration: WNL Association: WNL Fund of Knowledge: [facility] Decription of patient's judgement and insights: Fair I/J; chronic poor I/J re: alcohol abuse; psychoeducation provided - Mood Mood: Depressed - Affect Affect: Constricted, Depressed - Speech Speech: Appropriate - Formal Thought Process Formal Thought Process: No Impairment Psychotic Thoughts and Behaviors: NO AH/VH/paranoia/delusions - Suicidal Ideation Suicidal Ideation: No - Homicidal Ideation Homicidal Ideation: No Goal/Treatment Plan - Goal/Treatment Plan Need for Continued Stay: Remain at risks for inpatient hospitalization, Severe depression anxiety Progress Toward Problem(s) and Goals/Treatment Plan: Major Depressive Disorder; Alcohol Use Disorder; patient needs continued hospitalization for treatment and stabilization. -Individual and group therapy -Zoloft 50 mg PO Daily -Taper Librium for ETOH w/drawal; PRN ativan if needed -Thiamine, Folate -Disposition planning -Psychoeducation re: chronic substance abuse -Medicine consult appreciated Estimated Date of D/C: 05/23/17 - Smoking Cessation Smoking Cessation Initiated: No Reason for not providing: Not indicated
[2017-05-21] MEDS: Multivitamin With Minerals Tab PO SCH (09:10)
--- NOTE | 2017-05-21 10:19 | PCM.PYCHPN ---
Psychiatric Progress Note - Psychiatric Progress Note Patient seen today, length of contact: Patient evaluated, case discussed w/ team , chart reviewed Patient Chief Complaint: "I'm depressed." Problems Identified/Issues Discussed: Patient continues to report that he feels depressed. No adverse effects to Zoloft reported. No current signs/symptoms of ETOH withdrawal. NO AH/VH/ paranoia/delusions. Medication Change: Yes (Stop Libruim; PRN ATivan if needed) Medical Record Reviewed: Yes Consults ordered or reviewed: Medicine consult appreciated Mental Status Examination - Cognitive Function Orientation: Person, Place, Situation, Time Memory: Intact Attention: WNL Concentration: WNL Association: [facility] Fund of Knowledge: [facility] Decription of patient's judgement and insights: Fair I/J; chronic poor I/J re: alcohol abuse; psychoeducation provided - Mood Mood: Depressed - Affect Affect: Constricted, Depressed - Speech Speech: Appropriate - Formal Thought Process Formal Thought Process: No Impairment Psychotic Thoughts and Behaviors: NO AH/VH/paranoia/delusions - Suicidal Ideation Suicidal Ideation: No - Homicidal Ideation Homicidal Ideation: No Goal/Treatment Plan - Goal/Treatment Plan Need for Continued Stay: Remain at risks for inpatient hospitalization, Severe depression anxiety Progress Toward Problem(s) and Goals/Treatment Plan: Major Depressive Disorder; Alcohol Use Disorder; patient needs continued hospitalization for treatment and stabilization. -Individual and group therapy -Zoloft 50 mg PO Daily -Stop Librium; no current signs/symptoms of ETOH withdrawal; PRN ativan if needed -Thiamine, Folate -Disposition planning -Psychoeducation re: chronic substance abuse -Medicine consult appreciated Estimated Date of D/C: 05/23/17
[2017-05-22] MEDS: Multivitamin With Minerals Tab PO SCH (08:28)
--- NOTE | 2017-05-22 09:28 | PCM.PYCHPN ---
Psychiatric Progress Note - Psychiatric Progress Note Patient seen today, length of contact: Patient evaluated, case discussed w/ team , chart reviewed Patient Chief Complaint: "I'm depressed." Problems Identified/Issues Discussed: No significant events overnight. Patient continues to report that he feels depressed. No adverse effects to Zoloft reported. No current signs/symptoms of ETOH withdrawal. NO AH/VH/paranoia/delusions. Medication Change: No Medical Record Reviewed: Yes Consults ordered or reviewed: Medicine consult appreciated Mental Status Examination - Cognitive Function Orientation: Person, Place, Situation, Time Memory: Intact Attention: WNL Concentration: WNL Association: WN Fund of Knowledge: [facility] Decription of patient's judgement and insights: Fair I/J; chronic poor I/J re: alcohol abuse; psychoeducation provided - Mood Mood: Depressed - Affect Affect: Constricted, Depressed - Speech Speech: Appropriate - Formal Thought Process Formal Thought Process: No Impairment Psychotic Thoughts and Behaviors: NO AH/VH/paranoia/delusions - Suicidal Ideation Suicidal Ideation: No - Homicidal Ideation Homicidal Ideation: No Goal/Treatment Plan - Goal/Treatment Plan Need for Continued Stay: Remain at risks for inpatient hospitalization, Severe depression anxiety Progress Toward Problem(s) and Goals/Treatment Plan: Major Depressive Disorder; Alcohol Use Disorder; patient needs continued hospitalization for treatment and stabilization. -Individual and group therapy -Zoloft 50 mg PO Daily -No current signs/symptoms of ETOH withdrawal; PRN ativan if needed -Thiamine, Folate -Disposition planning -Psychoeducation re: chronic substance abuse -Medicine consult appreciated Estimated Date of D/C: 05/24/17
[2017-05-23] MEDS: Multivitamin With Minerals Tab PO SCH (08:41)
--- NOTE | 2017-05-23 10:22 | PCM.PYCHPN ---
Psychiatric Progress Note - Psychiatric Progress Note Patient seen today, length of contact: Patient evaluated, case discussed w/ team , chart reviewed Patient Chief Complaint: "I'm okay." Problems Identified/Issues Discussed: Patient reports that his mood is improving. No acute AH/VH/SI/HI. We discussed the importance of alcohol cessation. No adverse effects to Zoloft reported. Medication Change: No Medical Record Reviewed: Yes Consults ordered or reviewed: Medicine consult appreciated Mental Status Examination - Cognitive Function Orientation: Person, Place, Situation, Time Memory: Intact Attention: WNL Concentration: WNL Association: WNL Fund of Knowledge: [facility] Decription of patient's judgement and insights: Fair I/J; chronic poor I/J re: alcohol abuse; psychoeducation provided - Mood Mood: Depressed - Affect Affect: Broad - Speech Speech: Appropriate - Formal Thought Process Formal Thought Process: No Impairment Psychotic Thoughts and Behaviors: NO AH/VH/paranoia/delusions - Suicidal Ideation Suicidal Ideation: No - Homicidal Ideation Homicidal Ideation: No Goal/Treatment Plan - Goal/Treatment Plan Need for Continued Stay: Remain at risks for inpatient hospitalization Progress Toward Problem(s) and Goals/Treatment Plan: Major Depressive Disorder; Alcohol Use Disorder; patient reports that his mood is improving. He will likely be discharged tomorrow if his mood continues to improve. -Individual and group therapy -Zoloft 50 mg PO Daily -No current signs/symptoms of ETOH withdrawal; PRN ativan if needed -Thiamine, Folate -Disposition planning -Psychoeducation re: chronic substance abuse -Medicine consult appreciated Estimated Date of D/C: 05/24/17
[2017-05-24] MEDS: Multivitamin With Minerals Tab PO SCH (08:36)
--- NOTE | 2017-05-24 08:47 | PCM.PYCHPN ---
Psychiatric Progress Note - Psychiatric Progress Note Patient seen today, length of contact: Patient evaluated, case discussed w/ team , chart reviewed Patient Chief Complaint: "I'm okay." Problems Identified/Issues Discussed: Patient reports that his mood is improving, but continues to feel depressed. No acute AH/VH/SI/HI. We discussed the importance of alcohol cessation. No adverse effects to Zoloft reported. Medication Change: No Medical Record Reviewed: Yes Consults ordered or reviewed: Medicine consult appreciated Mental Status Examination - Cognitive Function Orientation: Person, Place, Situation, Time Memory: Intact Attention: WNL Concentration: WNL Association: [facility] Fund of Knowledge: [facility] Decription of patient's judgement and insights: Fair I/J; chronic poor I/J re: alcohol abuse; psychoeducation provided - Mood Mood: Depressed - Affect Affect: Constricted - Speech Speech: Appropriate - Formal Thought Process Formal Thought Process: No Impairment Psychotic Thoughts and Behaviors: NO AH/VH/paranoia/delusions - Suicidal Ideation Suicidal Ideation: No - Homicidal Ideation Homicidal Ideation: No Goal/Treatment Plan - Goal/Treatment Plan Need for Continued Stay: Remain at risks for inpatient hospitalization Progress Toward Problem(s) and Goals/Treatment Plan: Major Depressive Disorder; Alcohol Use Disorder; patient reports that his mood is improving, but he continues to feel depressed, will continue to monitor an additional day. -Individual and group therapy -Zoloft 50 mg PO Daily -No current signs/symptoms of ETOH withdrawal; PRN ativan if needed -Thiamine, Folate -Disposition planning -Psychoeducation re: chronic substance abuse -Medicine consult appreciated Estimated Date of D/C: 05/25/17 - Smoking Cessation Smoking Cessation Initiated: No Reason for not providing: Not indicated
[2017-05-25 07:04] VITALS: BP 139/80; PULSE 67; RESP 19; TEMP 97.2
--- NOTE | 2017-05-25 07:58 | PCM.PYCHDC ---
Mental Status Examination - Mental Status Examination Orientation: Person, Place, Situation, Time Memory: Intact Mood: Neutral Affect: Broad Speech: Appropriate Attention: WNL Concentration: WNL Association: WNL Fund of Knowledge: WNL Formal Thought Process: No Impairment Description of patient's judgement and insight: Fair I/J; chronic poor I/J re: alcohol abuse; psychoeducation provided Psychotic Thoughts and Behaviors: NO AH/VH/paranoia/delusions Suicidal Ideation: No Current Homicidal Ideation?: No Discharge Summary - Discharge Note Reason for Hospitalization: HPI: This is a 61 years old male who has hx of HTN, non compliant with medication. He has been from his for 2 months and has been homeless and drinking alcohol daily since. He was picked up on the street by the ambulance and bought to the ED where he admitted to being depressed. Patient reports that he drinks 3 bottles (pint?) of bacardi rum/ day. He reports that he feels depressed, but denies acute ideation to harm self or others. He also reports feeling anxious at times. He reports that he has had periods of sobriety in the past, but has been drinking heavily for several months. No AH/VH/paranoia/delusions. Patient is agreeable to treatment w/ antidepressant medication at this time. PPH: Denies past psychiatric history of psychiatric admissions or treatment w/ psychotropic medications. PMH: HTN not on medication PSH: Bilateral inguinal hernia Repair SH: From [facility], from , no children. 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 Reason for request. 2. Findings. 3. Follow-up Consultations: Medicine consult appreciated Summary of Hospital Course include:: 1. Description of specific treatment plan utilized for patients during their course of treatmen. 2. Summarize the time- course for resolution of acute symptoms and/or regressed behaviors. 3. Describe issues identified and worked on during hospitalization. 4. Describe medication utilized. 5. Describe medical problems identified and treated. 6. Reassessment of suicide risk Summary of Hospital Course: Patient was admitted to the hospital. He was treated for alcohol withdrawal. He was also given thiamine and folate. He was stabilized on Zoloft 50 mg PO Daily. Individual and group therapy were provided. Patient reports improvement in mood, no current psychosis/SI/HI. Patient is psychiatrically stable for discharge. Psychoeducation provided re: alcohol abuse. - Diagnosis (1) Major depressive disorder Current Visit: Yes Status: Acute (2) Alcohol use disorder Current Visit: Yes Status: Acute - Final Diagnosis (DSM 5) Condition upon Discharge: STABLE DSM 5: Major Depressive Disorder; Alcohol Use Disorder Disposition: HOME/ ROUTINE Follow-up Treatment Plan: Major Depressive Disorder; Alcohol Use Disorder; patient is psychiatrically stable for discharge. -Individual and group therapy -Zoloft 50 mg PO Daily -No current signs/symptoms of ETOH withdrawal -Thiamine, Folate -Psychoeducation re: chronic substance abuse -Medicine consult appreciated -Discharge w/ outpatient follow-up Prescriptions/Medication Reconciliation: Folic Acid 1 mg PO DAILY #30 tab Multimineral/Multivitamin [Therapeutic-M Tab] 1 tab PO DAILY #30 tab Sertraline [Zoloft] 50 mg PO DAILY #30 tab Thiamine [Vitamin B1 Tab] 100 mg PO DAILY #30 tab - Smoking Cessation Smoking Cessation Medication prescribed: No Reason for not providing: Not indicated - Antipsychotic Medications Pt discharged on 2 or more routine antipsychotic medications: No
[2017-05-25] MEDS: Multivitamin With Minerals Tab PO SCH (08:56)
== END 2017-05-25 14:15 | disposition home or self-care (01) | DRG 426 ==
LOC: H.STEP 16:54
PROVIDERS: ADMIT Psychiatry & Neurology Psychiatry; ATTEND Psychiatry & Neurology Psychiatry
PROC: HZ52ZZZ Individual Psychotherapy for Substance Abuse Treatment, Cognitive-Behavioral (ICD-10-PCS; principal; 2017-05-18)
PROC: GZHZZZZ Group Psychotherapy (ICD-10-PCS; 2017-05-18)
PROC: GZ58ZZZ Individual Psychotherapy, Cognitive-Behavioral (ICD-10-PCS; 2017-05-19)
DX: F32.9 Major depressive disorder, single episode, unspecified (principal); Z91.14 Patient's other noncompliance with medication regimen; F10.229 Alcohol dependence with intoxication, unspecified; Y90.8 Blood alcohol level of 240 mg/100 ml or more; I10 Essential (primary) hypertension; Z59.9 Problem related to housing and economic circumstances, unspecified; Z59.0 Homelessness